=== PATIENT | female | born 2000 | race African-American/Black ===

== ENCOUNTER 2023-12-21 16:21 | Emergency (ER) | payer MEDICAID, SELFPAY ==
[2023-12-21 16:53] LABS: Bilirubin Neg (Negative); Blood, Urine Negative (Negative); Clarity Clear (Clear); Glucose, Urine (Dipstick) Normal (Negative); Ketone, Urine Negative (Negative); Leukocyte Negative (Negative); Nitrite Negative (Negative); Protein, Urine (Dipstick) 15 mg/dl (Neg-Trace); Specific Gravity, Urine 1.025 (1.005-1.030); Urobilinogen Normal mg/dL (Less than 2)
[2023-12-21 17:01] LABS: Pregnancy Test - Urine (BHCG) Negative (Negative); Pregu Control Background? CLEAR/WHITE (CLR/WHITE); Pregu Control Bar Appear? YES (CONTROL BAR); Specific Gravity 1.025 (1.002-1.036)
[2023-12-21 17:06] LABS: Bacteria/HPF 2+ HPF (None Seen); CAUTI Indications for Culture Alt mental st,lethar; Mucous/LPF 2+ LPF (<2+); RBC/HPF 0-3 HPF (0-3); WBC/HPF 0-3 HPF (0-3)
[2023-12-21 17:08] LABS: Urine Culture Reflex No No
[2023-12-21] MEDS ORDERED: cefTRIAXone (ROCEPHIN) 500 MG VIAL ONE (17:33)
[2023-12-21] MEDS ORDERED: Lidocaine 1% MPF 2 ML VIAL ONE (17:33)
[2023-12-21] MEDS ORDERED: Azithromycin 250 MG TAB ONE (17:33)
[2023-12-22 16:07] LABS: Chlam.trachomatis by PCR,Urine Not Detected (NotDetected); GC N.gonorrhoeae PCR,UrineVOID Not Detected (NotDetected)
== END 2023-12-21 18:10 | disposition home or self-care (01) ==
LOC: CSHERS 16:21
DX: R11.2 Nausea with vomiting, unspecified (principal); N89.8 Other specified noninflammatory disorders of vagina; R35.0 Frequency of micturition
CPT/HCPCS: 81001; 81025; 87491; 87591; 99283; J0696

== ENCOUNTER 2023-12-28 18:12 | Emergency (ER) | payer SELFPAY ==
[2023-12-28] MEDS ORDERED: Ketorolac Tromethamine 30 MG (1 mL) VIAL ONE (19:02)
== END 2023-12-28 19:16 | disposition home or self-care (01) ==
LOC: CSHERS 18:12
DX: N93.9 Abnormal uterine and vaginal bleeding, unspecified (principal)
CPT/HCPCS: 96372; 99283; J1885